=== PATIENT | female | born 1990 | race Two or more races ===

== ENCOUNTER → 2022-10-08 09:14 | Day surgery (SDC) | payer OTHER, SELFPAY ==
--- NOTE | ~2022-10-08 | FL_ITS ---
PROCEDURE: XR LUMBAR PUNCTURE CLINICAL INFORMATION: Pseudotumor cerebri. COMPARISON: None available. TECHNIQUE: Following explaining fluoroscopy-guided lumbar puncture procedure, benefits and risk, a written consent was obtained from the patient. Patient was placed prone on fluoroscopy table and area was selected and marked on the skin at the L4-L5 disc level. A single image was obtained. The area marked was cleaned and draped in usual sterile manner. 1% lidocaine was injected at puncture site. A 22-gauge short needle was then inserted from the left paramidline region intrathecally at the L4-L5 disc level. After removing the stylet and observing CSF return, patient was quickly placed in left lateral decubitus view and opening CSF pressure was obtained. Subsequently CSF was collected in 4 test tubes. Postprocedure the stylet was reinserted and needle withdrawn. Complete hemostasis achieved at puncture site. Patient tolerated procedure extremely well. FINDINGS: On limited images of lumbar spine the vertebral heights, alignment and disc heights are normal. The opening CSF pressure measured 17 cm of water. Approximately 10 mL of clear CSF fluid was collected in 4 test tubes and sent to lab as per referring physician's orders. FLUOROSCOPY TIME: 0.4 minutes DOSE AREA PRODUCT: 2.594 uGy-m2 (microgray-meter squared) FL/FL guided lumbar puncture LP IMPRESSION: Successful fluoroscopy-guided lumbar myelogram was performed without immediate complications.
[2022-10-08 09:50] LABS: UPreg QC Valid YES; Urine Pregnancy NEGATIVE (NEGATIVE)
[2022-10-08 09:56] VITALS: BMI 26.6
[2022-10-08 10:07] LABS: MANUAL DIFF FLAG NO
[2022-10-08 10:08] LABS: Basophils Percent Auto 0.4 % (0-2); Eosinophils Absolute Auto 0.1 X10*3/uL (0.0-0.4); Eosinophils Percent Auto 2.2 % (0-4); Hematocrit 38.7 % (37.0-47.0); Hemoglobin 12.8 g/dl (12.0-16.0); Imm Gran Abs Auto 0.01 X10*3/uL (0.00-0.03); Imm Gran Pct Auto 0.2 % (0.0-0.4); Lymphocytes Absolute Auto 1.4 X10*3/uL (1.2-4.9); Lymphocytes Percent Auto 31.8 % (20-40); Mean Corpuscular HGB Conc 33.1 g/dl (31.0-35.0); Mean Corpuscular Hemoglobin 29.5 pg (27.0-33.0); Mean Corpuscular Volume 89.2 fL (80.0-98.0); Mean Platelet Volume 10.1 fL (9.4-12.3); Monocytes Absolute Auto 0.3 X10*3/uL (0.1-1.2); Monocytes Percent Auto 7.4 % (2-11); Neutrophils Absolute Auto 2.6 x10*3/uL (2.0-8.3); Platelet Count 201 X10*3/uL (160-400); Red Blood Count 4.34 X10*6/uL (4.20-5.50); Red Cell Distribution Width 12.6 % (11.0-16.0); White Blood Count 4.5 X10*3/uL (4.8-10.8)
[2022-10-08 10:13] LABS: INTERNATIONAL NORM RATIO 1.1 (0.9-1.1); Prothrombin Time 12.6 SEC (10.0-13.1)
[2022-10-08 10:16] LABS: Partial Thromboplastin Time 32.2 SEC (26.0-36.4)
[2022-10-08 10:22] LABS: Anion Gap 9 (12-20); Blood Urea Nitrogen 13 mg/dL (9-16); Carbon Dioxide 25 mmol/L (22-29); Chloride 111 mmol/L (96-108); Creatinine Clr Calc Pharmacy 108.5; Estimated Glomerular Filt Rate > 60; Potassium 4.3 mmol/L (3.3-5.1); Sodium 141 mmol/L (135-145)
[2022-10-08 11:37] VITALS: BP 102/59; PULSE 56; RESP 16; TEMP 36.3; O2SAT 100
[2022-10-08 12:07] VITALS: BP 108/62; PULSE 54; RESP 16; O2SAT 99
[2022-10-08 12:35] VITALS: BP 103/60; PULSE 53; RESP 16; O2SAT 98
[2022-10-08 15:42] LABS: Appearance CSF CLEAR; CSF Tube # 1; CSF Tube # 4; Color CSF COLORLESS; Red Blood Cell CSF 0 MM*3; Red Blood Cell CSF 4 MM*3; White Blood Cell CSF 0 MM*3
[2022-10-08 16:12] LABS: Glucose CSF 51 mg/dL; Total Protein CSF 28.2 mg/dL (15-45)
[2022-10-08 16:43] LABS: CSF Appearance Clear, Colorless; CSF Tube # 1
== END | disposition home or self-care (01) ==
PROVIDERS: Radiology Diagnostic Radiology; PCP Internal Medicine; Visit Provider Psychiatry & Neurology Neurology
PROC: 009U3ZZ Drainage of Spinal Canal, Percutaneous Approach (ICD-10-PCS; CPT 62270; principal; 2022-10-08 11:00)
DX: G93.2 Benign intracranial hypertension (principal); F41.8 Other specified anxiety disorders; Z79.899 Other long term (current) drug therapy; Z98.84 Bariatric surgery status; F17.210 Nicotine dependence, cigarettes, uncomplicated
CPT/HCPCS: 36415; 62328; 80051; 81025; 82565; 82945; 84157; 84520; 85025; 85610; 85730; 87015; 87070; 87205; 89051

== ENCOUNTER 2022-10-09 15:54 | Emergency (ER) | payer OTHER, SELFPAY ==
[2022-10-09 15:56] VITALS: BP 113/66; PULSE 64; RESP 18; TEMP 36.2; O2SAT 100; BMI 26.6
[2022-10-09 16:51] LABS: MANUAL DIFF FLAG NO
[2022-10-09 16:57] LABS: Basophils Percent Auto 0.4 % (0-2); Eosinophils Absolute Auto 0.1 X10*3/uL (0.0-0.4); Eosinophils Percent Auto 1.2 % (0-4); Hematocrit 39.9 % (37.0-47.0); Hemoglobin 13.3 g/dl (12.0-16.0); Imm Gran Abs Auto 0.01 X10*3/uL (0.00-0.03); Imm Gran Pct Auto 0.1 % (0.0-0.4); Lymphocytes Absolute Auto 1.4 X10*3/uL (1.2-4.9); Lymphocytes Percent Auto 19.4 % (20-40); Mean Corpuscular HGB Conc 33.3 g/dl (31.0-35.0); Mean Corpuscular Hemoglobin 29.7 pg (27.0-33.0); Mean Corpuscular Volume 89.1 fL (80.0-98.0); Mean Platelet Volume 10.2 fL (9.4-12.3); Monocytes Absolute Auto 0.4 X10*3/uL (0.1-1.2); Neutrophils Absolute Auto 5.5 x10*3/uL (2.0-8.3); Neutrophils Percent Auto 73.9 % (45-73); Platelet Count 217 X10*3/uL (160-400); Red Blood Count 4.48 X10*6/uL (4.20-5.50); Red Cell Distribution Width 12.6 % (11.0-16.0); White Blood Count 7.4 X10*3/uL (4.8-10.8)
[2022-10-09 17:12] LABS: Alanine Aminotransferase 10 U/L (0-31); Albumin Level 3.9 g/dL (3.5-5.0); Alkaline Phosphatase 44 U/L (39-117); Anion Gap 8 (12-20); Aspartate Amino Transferase 9 U/L (5-31); Bilirubin Total 0.4 mg/dL (0.0-1.0); Blood Urea Nitrogen 14 mg/dL (9-16); Carbon Dioxide 27 mmol/L (22-29); Chloride 111 mmol/L (96-108); Creatinine Clr Calc Pharmacy 104.3; Estimated Glomerular Filt Rate > 60; Glucose Random 98 mg/dL (60-115); Potassium 4.4 mmol/L (3.3-5.1); Sodium 142 mmol/L (135-145); Total Protein 6.1 g/dL (6.5-8.0)
[2022-10-09 17:13] LABS: COVID-19 Test Negative (Negative); IDNOW Serial# 08D9AD1C
[2022-10-09 18:56] VITALS: BP 96/62; PULSE 55; RESP 16; TEMP 36.4; O2SAT 100
--- NOTE | 2022-10-09 19:25 | PC.NURSE ---
Pt aox4 resting at the bedside in no apparent distress. VSS. Pt reports headache, 10/10, after lumbar puncture procedure. Pending physician eval. Will continue to monitor.
[2022-10-09] MEDS: Metoclopramide HCl 10 MG/2 ML VIAL IVPUSH (19:49)
[2022-10-09] MEDS: Ketorolac Tromethamine 15 MG/ML VIAL IVPUSH (19:49)
[2022-10-09] MEDS: 0.9 % Sodium Chloride 1,000 ML 999 ML IV (19:50)
[2022-10-09 19:54] VITALS: BP 103/65; PULSE 47; RESP 12; TEMP 36.6; O2SAT 100
--- NOTE | 2022-10-09 19:55 | PC.NURSE ---
Pt aox4 resting at the bedside. No apparent distress noted. Medicated as ordered. Tolerated well. Will continue to monitor.
--- NOTE | 2022-10-09 21:28 | ED.GENADULT ---
HPI - General Adult General Chief complaint: Headache Stated complaint: Headache Time Seen by Provider: 10/09/22 19:11 Source: patient Mode of arrival: ambulatory Limitations: no limitations History of Present Illness HPI narrative: 31-year-old female with history of pseudotumor cerebri presents with headache. Patient had a LP performed yesterday. Since then she has had a moderate to severe headache. The headache is generalized. It does not radiate. It is associated with photo and phonophobia. She has had some nausea but no vomiting. She denies any focal neurologic deficits. She has had no fevers or chills. She denies any neck pain or stiffness. Related Data Previous Rx's Medication Instructions Recorded omyvhulskp-firfhnsebrjlo-ctjnghaq 1 cap PO Q8H PRN pain #10 caps 10/09/22 50 mg-300 mg-40 mg capsule (Fioricet) Allergies Allergy/AdvReac Type Severity Reaction Status Date / Time No Known Allergies Allergy Verified 10/07/22 14:58 [facility] Past Medical History Surgical History H/O gastric sleeve Social History Social History Advance Directives: No Advance Directives Information Provided: No Physical Exam ED Vital Signs: Vital Signs - 24 hr 10/09/22 15:56 10/09/22 18:56 10/09/22 19:54 Temperature 97.1 F 97.5 F 97.8 F Pulse Rate 64 55 47 L Respiratory Rate 18 16 12 Blood Pressure 113/66 96/62 103/65 Pulse Oximetry 100 100 100 Oxygen Delivery Method Room Air Room Air Room Air BMI result Body Mass Index 26.6 GEN: Well developed, no acute distress, alert, oriented HEENT: Normocephalic, atraumatic, normal external ears, nose appears normal, no oropharyngeal edema or exudates Eyes: Normal to appearance Neck: Supple, no lymphadenopathy Respiratory: Talks in complete sentences, no respiratory distress, clear to auscultation bilaterally Cardiovascular: Regular rate and rhythm, no murmurs rubs or gallops Abdomen: Soft, nontender, nondistended, no guarding, no rebound Back: No CVA tenderness Extremities: No clubbing cyanosis or edema Neurologic: No focal neurologic deficits, cranial nerves 2-12 intact, strength is 5/5 bilaterally, gait normal Skin: No rash Course Course Course Narrative: 31-year-old female presents with headache. She had of this lumbar puncture yesterday for pseudotumor cerebri. At this time, is very likely that her symptoms are post LP headache especially since they are worse when she sits up or stands up. Examination is nonfocal. She has no meningeal signs. Doubt acute meningitis. Patient was treated with intravenous fluids, Toradol, Reglan. Her headache is nearly gone at this time. Patient will be discharged home. I will prescribe Fioricet for her. Should her headache return, I have instructed her return to the hospital for re-evaluation and possible blood patch. Medications Administered Discontinued Medications Generic Name Dose Route Start Last Admin Trade Name Panteraq PRN Reason Stop Dose Admin Sodium Chloride 1,000 mls @ 999 mls/hr 10/09/22 19:45 10/09/22 21:20 Ns IV 10/09/22 20:45 Infused .Q1H1M DENIA Infusion Ketorolac Tromethamine 15 mg 10/09/22 19:41 10/09/22 19:49 Ketorolac Tromethamine 15 Mg/Ml Vial IVPUSH 10/09/22 19:42 15 mg ONCE ONE Administration Metoclopramide HCl 10 mg 10/09/22 19:41 10/09/22 19:49 Metoclopramide Hcl 10 Mg/2 Ml Vial IVPUSH 10/09/22 19:42 10 mg ONCE ONE Administration Medical Decision Making Medical Decision Making MDM Narrative: 31-year-old female presents with headache. She had of this lumbar puncture yesterday for pseudotumor cerebri. At this time, is very likely that her symptoms are post LP headache especially since they are worse when she sits up or stands up. Examination is nonfocal. She has no meningeal signs. Doubt acute meningitis. Patient was treated with intravenous fluids, Toradol, Reglan. Her headache is nearly gone at this time. Patient will be discharged home. I will prescribe Fioricet for her. Should her headache return, I have instructed her return to the hospital for re-evaluation and possible blood patch. Differential Diagnosis Differential Diagnoses: The differential diagnosis associated with the presentation includes (Post LP headache, CSF leak, migraine, tension headache, cluster headache, sinus headache, viral syndrome) Post LP headache Admission/Observation Consideration of admission/observation: Escalation of care including admission/observation considered Lab Data MDM Lab Attestation statement: I reviewed the patient's lab results. 10/09/22 16:45 10/09/22 16:45 Labs: Lab Results 10/09/22 10/09/22 10/09/22 Range/Units 16:45 16:45 16:45 WBC 7.4 (4.8-10.8) X10*3/uL RBC 4.48 (4.20-5.50) X10*6/uL Hgb 13.3 (12.0-16.0) g/dl Hct 39.9 (37.0-47.0) % MCV 89.1 (80.0-98.0) fL MCH 29.7 (27.0-33.0) pg MCHC 33.3 (31.0-35.0) g/dl RDW 12.6 (11.0-16.0) % Plt Count 217 (160-400) X10*3/uL MPV 10.2 (9.4-12.3) fL Immature Gran % (Auto) 0.1 (0.0-0.4) % Neut % (Auto) 73.9 H (45-73) % Lymph % (Auto) 19.4 L (20-40) % Darke % (Auto) 5.0 (2-11) % Eos % (Auto) 1.2 (0-4) % Baso % (Auto) 0.4 (0-2) % Lymph # (Auto) 1.4 (1.2-4.9) X10*3/uL Darke # (Auto) 0.4 (0.1-1.2) X10*3/uL Eos # (Auto) 0.1 (0.0-0.4) X10*3/uL Baso # (Auto) 0.0 (0.0-0.2) X10*3/uL Abs Immat Gran (auto) 0.01 (0.00-0.03) X10*3/uL Absolute Neuts (auto) 5.5 (2.0-8.3) x10*3/uL Absolute Nucleated RBC 0.000 (0.0-0.012) X10*3/uL Nucleated RBC % (auto) 0.0 (0.0-0.2) /100WBC Sodium 142 (135-145) mmol/L Potassium 4.4 (3.3-5.1) mmol/L Chloride 111 H (96-108) mmol/L Carbon Dioxide 27 (22-29) mmol/L Anion Gap 8 L (12-20) BUN 14 (9-16) mg/dL Creatinine 0.78 (0.5-1.4) mg/dL Estim Creat Clear Calc 104.3 Estimated GFR > 60 Random Glucose 98 (60-115) mg/dL Calcium 9.0 (8.4-10.2) mg/dL Total Bilirubin 0.4 (0.0-1.0) mg/dL AST 9 (5-31) U/L ALT 10 (0-31) U/L Alkaline Phosphatase 44 (39-117) U/L Total Protein 6.1 L (6.5-8.0) g/dL Albumin 3.9 (3.5-5.0) g/dL COVID-19 (TRISTA) Negative (Negative) COVID-19 Clin Com See Note Independent Historian Clinical information obtained from an independent historian. History obtained from or confirmed by: Spouse External Record Review External record reviewed: Outpatient record (H&P for pseudotumor cerebri) Prescription Management I considered prescription management with: Pain Medication Discharge Plan Discharge Clinical Impression: Headache, post-lumbar puncture Patient Disposition: Home, Self-Care Instructions: Acute Headache (DC), Epidural Blood Patch (DC), Lumbar Puncture (ED) Prescriptions: New lokapvnxko-slnomabrnsmlu-zuek [Fioricet] 50-300-40 mg capsule 1 cap PO Q8H PRN (Reason: pain) Qty: 10 0RF Referrals: Mariaelena Sharpe MD [Primary Care Provider] -
[2022-10-09 21:41] VITALS: BP 115/70; PULSE 55; RESP 12; TEMP 36.6; O2SAT 98
--- NOTE | 2022-10-09 21:47 | PC.NURSE ---
Pt aox4 resting at the bedside in no apparent distress. IV line removed with no complications. Pt tolerated well. Discharge instructions reviewed with pt. Pt verbalizes understanding .
== END 2022-10-09 21:49 | disposition home or self-care (01) ==
PROVIDERS: Emergency Provider Emergency Medicine; PCP Internal Medicine
DX: R51.9 Headache, unspecified (principal); G97.1 Other reaction to spinal and lumbar puncture; Z20.822 Contact with and (suspected) exposure to COVID-19
CPT/HCPCS: 80053; 85025; 87635; 96361; 96374; 96375; 99284; J1885; J2765

== ENCOUNTER 2024-06-14 04:05 | Emergency (ER) | payer OTHER, SELFPAY ==
[2024-06-14 04:12] VITALS: BP 106/70; PULSE 122; RESP 18; TEMP 36.5; O2SAT 96; BMI 30.8
[2024-06-14 04:32] LABS: MANUAL DIFF FLAG NO
[2024-06-14 04:33] LABS: Basophils Percent Auto 0.2 % (0-2); Eosinophils Absolute Auto 0.1 X10*3/uL (0.0-0.4); Eosinophils Percent Auto 1.1 % (0-4); Hematocrit 45.7 % (37.0-47.0); Hemoglobin 15.4 g/dl (12.0-16.0); Imm Gran Abs Auto 0.04 X10*3/uL (0.00-0.03); Imm Gran Pct Auto 0.4 % (0.0-0.4); Lymphocytes Absolute Auto 0.4 X10*3/uL (1.2-4.9); Lymphocytes Percent Auto 4.6 % (20-40); Mean Corpuscular HGB Conc 33.7 g/dl (31.0-35.0); Mean Corpuscular Hemoglobin 29.6 pg (27.0-33.0); Mean Corpuscular Volume 87.9 fL (80.0-98.0); Mean Platelet Volume 10.1 fL (9.4-12.3); Monocytes Absolute Auto 0.5 X10*3/uL (0.1-1.2); Monocytes Percent Auto 5.7 % (2-11); Neutrophils Absolute Auto 8.3 x10*3/uL (2.0-8.3); Platelet Count 211 X10*3/uL (160-400); Red Cell Distribution Width 12.9 % (11.0-16.0); White Blood Count 9.4 X10*3/uL (4.8-10.8)
[2024-06-14 04:44] LABS: COVID-19 Test Negative (Negative); IDNOW Serial# 152EDE1D
[2024-06-14 04:48] LABS: Alanine Aminotransferase 21 U/L (0-31); Albumin Level 4.5 g/dL (3.5-5.0); Alkaline Phosphatase 58 U/L (39-117); Anion Gap 11 (12-20); Aspartate Amino Transferase 22 U/L (5-31); Bilirubin Total 0.6 mg/dL (0.0-1.0); Blood Urea Nitrogen 13 mg/dL (9-16); Calcium 9.3 mg/dL (8.4-10.2); Carbon Dioxide 17 mmol/L (22-29); Chloride 114 mmol/L (96-108); Creatinine Clr Calc Pharmacy 112.6; Estimated Glomerular Filt Rate > 60; Glucose Random 123 mg/dL (60-115); IDNOW Serial# 08D9AD1C; Influenza A Negative (Negative); Influenza B2 Negative (Negative); Lipase 12 U/L (8-78); Potassium 4.3 mmol/L (3.3-5.1); Sodium 138 mmol/L (135-145); Total Protein 7.9 g/dL (6.5-8.0)
--- NOTE | 2024-06-14 05:21 | PC.NURSE ---
Provider into assess pt.
[2024-06-14 06:22] VITALS: BP 112/76; PULSE 104; RESP 12; TEMP 37.2; O2SAT 97
--- NOTE | 2024-06-14 06:24 | PC.NURSE ---
pt awaiting to be seen by provider, pt resting in room , no n/v/d at this time
--- NOTE | 2024-06-14 07:11 | ED.NAVMDI ---
HPI - Nausea/Vomiting/Diarrhea General Chief complaint: Nausea/Vomiting/Diarrhea Stated complaint: vomiting, weak Time Seen by Provider: 06/14/24 06:32 Source: patient, RN notes reviewed and old records reviewed Mode of arrival: ambulatory History of Present Illness ED Provider: Dian Reeves PA-C [facility] Narrative: 33-year-old female no significant past medical history presenting to the ED complaining of abdominal discomfort/ bloating, nausea, vomiting, and liquidy diarrhea since yesterday w/decreased PO intake. Reports generalized fatigue /weakness. Admits to eating sushi prior to symptoms starting however denies suspicious food intake, travel, sick contacts. Denies brbpr, melena, fever, cough, CP/ SOB, dysuria/ hematuria, recent Abx use Related Data Previous Rx's ?Medication ?Instructions ?Recorded sdlqdbaqiv-nzgeixwqltvqz-ffecgrrh 1 cap PO Q8H PRN pain #10 caps 10/09/22 50 mg-300 mg-40 mg capsule (Fioricet) ondansetron 4 mg disintegrating 4 mg PO Q8H PRN nausea and 06/14/24 tablet vomiting #10 tabs Allergies Allergy/AdvReac Type Severity Reaction Status Date / Time No Known Allergies Allergy Verified 06/14/24 04:13 Review of Systems Review of Systems: Yes all other systems are reviewed and are negative Constitutional: Constitutional: Reports as per [facility] Past Medical History Attestation statement: The following information was validated with the patient. Source: old records reviewed Surgical History H/O gastric sleeve Social History Social History Smoked in Last 30 Days: No Use of substances other than those prescribed or required for medical reasons: No Advance Directives: No Do you have a plan to hurt others: No Plan Physical Exam Vital Signs: Vital Signs: Last Vital Signs Temp 98.8 F 06/14/24 09:50 Pulse 85 06/14/24 10:44 Resp 20 06/14/24 10:44 BP 107/8 L 06/14/24 10:44 Pulse Ox 99 06/14/24 10:44 O2 Del Method Room Air 06/14/24 09:50 BMI result Body Mass Index 30.8 Const: General: cooperative, healthy appearing and no acute distress Orientation/consciousness: patient oriented x3 Limitations: no limitations HEENT: Head: Yes normal to inspection and Yes atraumatic Ears: hearing grossly normal bilaterally General nose exam: Normal external nose present Face and sinus: Yes normal facial exam Eyes: General: appearance normal, both eyes and all related structures EOM: EOMs intact bilaterally Neck: Neck: Yes normal visual inspection and Yes no meningeal signs Resp: Effort & Inspection: normal respiratory effort and no respiratory distress Cardio: Rate: regular rate GI: Inspection: Yes normal to inspection Palpation (GI): Soft to palpation, nontender, no guarding and not rigid : General: Yes no CVA tenderness Back/Spine/Pelvis: Back: no CVA tenderness Skin: Rashes: no rashes Wounds: no wounds Neuro: General: patient oriented x3, tone normal and no meningeal signs Cranial nerves: Yes CN's II-XII intact bilaterally Gait exam (Neuro): Normal gait present Extrem: General: Yes normal to inspection Course Course Course Narrative: -0854-- labs reassuring. UA negative. negative. -0919-- C diff negative > patient tolerating p.o. in the ED without difficulty. Reports symptomatic improvement -0950-- patient's BP soft on attempted discharge will give additional L IVF and repeat -1052-- BP improved after IVF. Patient cleared for discharge at this time Results discussed with patient including worrisome signs and symptoms and strict return precautions, and when to return to the emergency department. They verbalized understanding and feel safe for discharge at this time. Medications Administered Generic Name Dose Route Start Last Admin Trade Name Freq PRN Reason Stop Dose Admin Sodium Chloride 1,000 mls @ 999 mls/hr 06/14/24 10:00 06/14/24 09:59 Ns IV 06/14/24 11:00 999 mls/hr .Q1H1M DENIA Administration Discontinued Medications Generic Name Dose Route Start Last Admin Trade Name Freq PRN Reason Stop Dose Admin Sodium Chloride 1,000 mls @ 999 mls/hr 06/14/24 07:00 06/14/24 08:37 Ns IV 06/14/24 08:00 Infused .Q1H1M DENIA Infusion Ketorolac Tromethamine 15 mg 06/14/24 07:50 06/14/24 08:28 Ketorolac Tromethamine 15 Mg/Ml Vial IVPUSH 06/14/24 07:51 15 mg ONCE ONE Administration Medical Decision Making Medical Decision Making [facility] Narrative: 33-year-old female no significant past medical history presenting to the ED complaining of abdominal discomfort/ bloating, nausea, vomiting, and liquidy diarrhea since yesterday w/decreased PO intake. On exam initially tachycardic, NAD, nontoxic appearing, abdomen soft / nontender. Concern for gastroenteritis vs food poisoning vs C diff vs dehydration / metabolic abnormalities. Low suspicion for severe sepsis at this time. Unlikely appendicitis /diverticulitis, SBO or GI bleed Plan: Labs, UA, stool studies, IVF, p.o. trial/re-evaluate no need for imaging at this time Please refer to course for remaining clinical decision making, interpretation of labs/imaging results, and discussions with consultants and/or family members. Differential Diagnosis Differential Diagnoses: The differential diagnosis associated with the presentation includes As above Lab Data [facility] Lab Attestation statement: I reviewed the patient's lab results. 06/14/24 04:24 06/14/24 04:24 Labs: Lab Results 06/14/24 06/14/24 06/14/24 Range/Units 04:24 07:37 07:38 WBC 9.4 (4.8-10.8) X10*3/uL RBC 5.20 (4.20-5.50) X10*6/uL Hgb 15.4 (12.0-16.0) g/dl Hct 45.7 (37.0-47.0) % MCV 87.9 (80.0-98.0) fL MCH 29.6 (27.0-33.0) pg MCHC 33.7 (31.0-35.0) g/dl RDW 12.9 (11.0-16.0) % Plt Count 211 (160-400) X10*3/uL MPV 10.1 (9.4-12.3) fL Immature Gran % (Auto) 0.4 (0.0-0.4) % Neut % (Auto) 88.0 H (45-73) % Lymph % (Auto) 4.6 L (20-40) % [place] % (Auto) 5.7 (2-11) % Eos % (Auto) 1.1 (0-4) % Baso % (Auto) 0.2 (0-2) % Lymph # (Auto) 0.4 L (1.2-4.9) X10*3/uL [place] # (Auto) 0.5 (0.1-1.2) X10*3/uL Eos # (Auto) 0.1 (0.0-0.4) X10*3/uL Baso # (Auto) 0.0 (0.0-0.2) X10*3/uL Abs Immat Gran (auto) 0.04 H (0.00-0.03) X10*3/uL Absolute Neuts (auto) 8.3 (2.0-8.3) x10*3/uL Absolute Nucleated RBC 0.000 (0.0-0.012) X10*3/uL Nucleated RBC % (auto) 0.0 (0.0-0.2) /100WBC Sodium 138 (135-145) mmol/L Potassium 4.3 (3.3-5.1) mmol/L Chloride 114 H (96-108) mmol/L Carbon Dioxide 17 L (22-29) mmol/L Anion Gap 11 L (12-20) BUN 13 (9-16) mg/dL Creatinine 0.76 (0.5-1.4) mg/dL Estim Creat Clear Calc 112.6 Estimated GFR > 60 Random Glucose 123 H (60-115) mg/dL Calcium 9.3 (8.4-10.2) mg/dL Magnesium 1.9 (1.6-2.6) mg/dL Total Bilirubin 0.6 (0.0-1.0) mg/dL AST 22 (5-31) U/L ALT 21 (0-31) U/L Alkaline Phosphatase 58 (39-117) U/L Total Protein 7.9 (6.5-8.0) g/dL Albumin 4.5 (3.5-5.0) g/dL Lipase 12 (8-78) U/L Urine Color Dark Yellow Urine Appearance Clear Urine pH 5.5 (5.0-9.0) Ur Specific Emerson >= 1.030 H (1.005-1.025) Urine Protein 30 (1+) H (Neg-Trace) mg/dL Urine Glucose (UA) Negative (Negative) mg/dL Urine Ketones Negative (Negative) mg/dL Urine Blood Negative (Negative) Urine Nitrite Negative (Negative) Ur Leukocyte Esterase Negative (Negative) Urine RBC 0-2 (0-2) /HPF Urine WBC 0-5 (0-5) /HPF Ur Squamous Epith Cells 0-2 (0-2) /HPF Urine Bacteria None Seen (None Seen) Hyaline Casts 0-2 (0-2) /LPF Urine Test NEGATIVE (NEGATIVE) C. difficile Tox B Gene NEGATIVE (Negative) COVID-19 (TRISTA) Negative (Negative) COVID-19 Clin Com See Note Influenza Type A (BLOSSOM) Negative (Negative) Influenza Type B (BLOSSOM) Negative (Negative) Influenza A & B Note See Note Radiology Impression Discussion of test interpretation with radiology: I have reviewed the radiologist's reading. External Record Review External record reviewed: Inpatient record, Office record, Outpatient record, Prior outpatient labs, Prior outpatient radiology, Primary care record and Outside ED record Tests considered The following testing was considered but not selected: As above Prescription Management I considered prescription management with: Pain Medication and Antibiotic Social Determinants Patient?s care significantly limited by Social Determinants of Health including: Other Social Determinant of Health Discharge Plan Discharge Clinical Impression: Gastroenteritis Patient Disposition: Home, Self-Care Instructions: Gastroenteritis (DC) Additional Instructions: your blood work, urine, and viral studies are reassuring Zofran as an antinausea medication, take as needed for nausea / vomiting Please practice a bland diet, avoid spicy foods, sweets, caffeine, chocolate If your symptoms persist or worsen you constant worsening nausea, vomiting, diarrhea, abdominal pain return to the ED Follow-up with your doctor Prescriptions: New ondansetron 4 mg tablet,disintegrating 4 mg PO Q8H PRN (Reason: nausea and vomiting) Qty: 10 0RF No Action jyguebdzrz-rnxjapsklxwzt-kikr [Fioricet] 50-300-40 mg capsule 1 cap PO Q8H PRN (Reason: pain) Qty: 10 0RF Referrals: Physician,Unknown J [Primary Care Provider] - 1 week Stand Alone Forms: Work/School Release Print Language: Albanian
[2024-06-14] MEDS: 0.9 % Sodium Chloride 1,000 ML 999 ML IV ×2 (07:33→09:59)
[2024-06-14 07:39] LABS: Magnesium 1.9 mg/dL (1.6-2.6)
[2024-06-14 07:48] LABS: UPreg QC Valid YES; Urine Pregnancy NEGATIVE (NEGATIVE)
[2024-06-14 07:57] LABS: Appearance Urine Clear; Color Urine Dark Yellow; Glucose Urine UA Negative (Negative); Leukocyte Esterase Urine Negative (Negative); Nitrite Urine Negative (Negative); PH 5.5 (5.0-9.0); Specific Gravity - Urine >= 1.030 (1.005-1.025); UMIC TRIGGER UACC YES; Urine Blood Negative (Negative); Urine Ketones Negative (Negative); Urine Protein 30 (1+) mg/dL (Neg-Trace)
[2024-06-14 08:13] LABS: Bacteria Urine None Seen (None Seen); Hyaline Casts Urine 0-2 /LPF (0-2); RBC Urine 0-2 /HPF (0-2); Squamous Epithelial Cell Urine 0-2 /HPF (0-2); WBC Urine 0-5 /HPF (0-5)
[2024-06-14] MEDS: Ketorolac Tromethamine 15 MG/ML VIAL IVPUSH (08:28)
[2024-06-14 09:10] LABS: CDiff Gene PCR NEGATIVE (Negative)
[2024-06-14 09:50] VITALS: BP 91/51; PULSE 96; RESP 18; TEMP 37.1; O2SAT 97
[2024-06-14 10:35] VITALS: BP 100/58; PULSE 83; RESP 18; O2SAT 99
[2024-06-14 10:44] VITALS: BP 107/58; PULSE 85; RESP 20; O2SAT 99
[2024-06-14 10:56] VITALS: BP 107/58; PULSE 85; RESP 20; TEMP 36.6; O2SAT 99
[2024-06-14 10:56] LABS: Adenovirus F 40/41 Not Detected (Not Detect.); Astrovirus Not Detected (Not Detect.); Campylobacter Not Detected (Not Detect.); Cryptosporidium Not Detected (Not Detect.); Cyclospora cayetanensis Not Detected (Not Detect.); E. coli EAEC Not Detected (Not Detect.); E. coli EPEC Not Detected (Not Detect.); E. coli ETEC Not Detected (Not Detect.); E. coli STEC Not Detected (Not Detect.); Entamoeba histolytica Not Detected (Not Detect.); Giardia lamblia Not Detected (Not Detect.); Norovirus GI/GII Not Detected (Not Detect.); Plesiomonas shigelloides Not Detected (Not Detect.); Rotavirus A Detected (Not Detect.); Salmonella Not Detected (Not Detect.); Sapovirus Not Detected (Not Detect.); Shigella sp./EIEC Not Detected (Not Detect.); Vibrio Not Detected (Not Detect.); Vibrio Cholerae Not Detected (Not Detect.); Yersinia enterocolitica Not Detected (Not Detect.)
--- OUTSIDE RECORDS SUMMARY | 2024-06-20 16:08 | XMS_ITS ---
Author Name [facility] Organization Unknown Results Test Name/Text Value Interpretation Date Range Source LAB AP CLINICAL INFORMATION Rule out chronic endometritis Normal [id number]
== END 2024-06-14 10:57 | disposition home or self-care (01) ==
PROVIDERS: Physician Assistant; Emergency Provider Emergency Medicine
DX: K52.9 Noninfective gastroenteritis and colitis, unspecified (principal); R11.2 Nausea with vomiting, unspecified; Z03.818 Encounter for observation for suspected exposure to other biological agents ruled out
CPT/HCPCS: 36415; 80053; 81001; 81025; 83690; 83735; 85025; 87493; 87502; 87507; 87635; 96361; 96374; 99284; 99285; J1885